=== PATIENT | male | born 1980 | race Caucasian/White ===

== ENCOUNTER 2020-01-27 22:35 | Emergency (ER) | payer BC ==
[~2020-01-27] VITALS: Ht 180.3 cm; Wt 136.3 kg
[2020-01-27] MEDS ORDERED: HYDROcodone/APAP 5/325MG 1 TAB TABLET PO ONE (23:30)
--- NOTE | 2020-01-27 23:34 | PHYS DOC ---
General Adult EDM: Chief Complaint: LOWEREXTREMITY INJURY HPI: HPI: Patient is a 39 year old male who presented to ER today for evaluation of right knee pain after he fell on his right knee today around 10 PM. Patient was walking the sidewalk, tripped and fell down on his right knee. Patient denies any head or neck injury. Patient was able to get up and walk but he also has knee pain that radiated to his right hip area. Review of Systems: Review of Systems: Constitutional: Denies fever or chills. [] Eyes: Denies change in visual acuity. [] HENT: Denies nasal congestion or sore throat. [] Respiratory: Denies cough or shortness of breath. [] Cardiovascular: Denies chest pain or edema. [] GI: Denies abdominal pain, nausea, vomiting, bloody stools or diarrhea. [] : Denies dysuria. [] Musculoskeletal: Positive for right knee and right hip pain. Integument: Denies rash. [] Neurologic: Denies headache, focal weakness or sensory changes. [] Endocrine: Denies polyuria or polydipsia. [] Lymphatic: Denies swollen glands. [] Psychiatric: Denies depression or anxiety. [] Heart Score: Risk Factors: Risk Factors: DM, Current or recent (<one month) smoker, HTN, HLP, family history of CAD, obesity. Risk Scores: Score 0 - 3: 2.5% MACE over next 6 weeks - Discharge Home Score 4 - 6: 20.3% MACE over next 6 weeks - Admit for Clinical Observation Score 7 - 10: 72.7% MACE over next 6 weeks - Early Invasive Strategies Current Medications: Current Medications Medications (Trade) Dose Ordered Sig/Piotr Start Time Stop Time Status Last Admin Dose Admin Acetaminophen/ Hydrocodone Bitart (Lortab 5/325) 2 tab 1X ONCE 01/27/20 23:30 01/27/20 23:31 DC Allergies: Allergies: Allergies Coded Allergies Type Severity Reaction Last Updated Verified No Known Drug Allergies 01/27/20 No Physical Exam: PE: Constitutional: Well developed, well nourished, no acute distress, non-toxic appearance. [] HENT: Normocephalic, atraumatic, bilateral external ears normal, oropharynx moist, no oral exudates, nose normal. [] Eyes: PERRLA, EOMI, conjunctiva normal, no discharge. [] Neck: Normal range of motion, no tenderness, supple, no stridor. [] Cardiovascular:Heart rate regular rhythm, no murmur [] Lungs & Thorax: Bilateral breath sounds clear to auscultation [] Abdomen: Bowel sounds normal, soft, no tenderness, no masses, no pulsatile masses. [] Skin: Warm, dry, no erythema, no rash. [] Back: No tenderness, no CVA tenderness. [] Extremities: Right knee is swollen and tender at the patella area, no open wound, right side pelvic is tender to palpation. Patient can flex and extend his right knee without any problem. Neurologic: Alert and oriented X 3, normal motor function, normal sensory function, no focal deficits noted. [] Psychologic: Affect normal, judgement normal, mood normal. [] Current Patient Data: Vital Signs: Vital Signs Date Time Temp Pulse Resp B/P (MAP) Pulse Ox O2 Delivery O2 Flow Rate FiO2 01/27/20 23:14 98.8 59 24 145/85 (105) 95 Room Air 98.8 EKG: EKG: [] Radiology/Procedures: Radiology/Procedures: [facility] [address] [place] [address] IMAGING REPORT Signed PATIENT: KASEY MUNIZ ACCOUNT: [id number] : 1980 LOCATION: ER AGE: 39 SEX: M EXAM STATUS: REG ER ORD. PHYSICIAN: JUAN PABLO LEON DO REASON: fell, right knee injured PROCEDURE: KNEE RIGHT 3V 2 views right knee: HISTORY: Pain after fall Limited 2 view AP lateral views The visualized osseous structures appear grossly intact. There is soft tissue density anterior to the patella. IMPRESSION: Probable large hematoma. No fracture seen. End impression Pelvis right hip: AP view the pelvis was obtained as well as AP and frog leg views of the right hip The visualized osseous structures appear grossly intact. The femoral acetabular relationship is normal. IMPRESSION: No acute findings. Electronically signed by: Sammy Moss III, MD (01/28/2020 12:21 AM) [facility] DICTATED and SIGNED BY: SAMMY MOSS III, MD DATE: 01/28/20 0021 Course & Med Decision Making: Course & Med Decision Making Pertinent Labs and Imaging studies reviewed. (See chart for details) Patient is a 39-year-old male who sustained right knee hematoma and contusion, x-ray did not show any fracture. Patient will be discharged home with crutches. Bre Disclaimer: Bre Disclaimer: This electronic medical record was generated, in whole or in part, using a voice recognition dictation system. Departure Departure Impression: Primary Impression: Contusion of knee, right Disposition: 01 DC HOME SELF CARE/HOMELESS Condition: STABLE Referrals: JOHN ELIZALDE DO (PCP) please follow up with your doctor for outpatient evaluation with MRI next week if you are not getting better. Patient Instructions: Contusion Scripts Hydrocodone/Apap 10-325 (NORCO 10-325 TABLET) 1 Each Tablet 1 TAB PO PRN Q6HRS PRN for PAIN, #20 TAB 0 Refills Prov: JUAN PABLO LEON DO 01/28/20 JUAN PABLO LEON DO Jan 27, 2020 23:33
--- NOTE | 2020-01-28 00:24 | RAD ---
2 views right knee: HISTORY: Pain after fall Limited 2 view AP lateral views The visualized osseous structures appear grossly intact. There is soft tissue density anterior to the patella. IMPRESSION: Probable large hematoma. No fracture seen. End impression Pelvis right hip: AP view the pelvis was obtained as well as AP and frog leg views of the right hip The visualized osseous structures appear grossly intact. The femoral acetabular relationship is normal. IMPRESSION: No acute findings. Electronically signed by: Maynor Islas III, MD (01/28/2020 12:21 AM) [facility]
--- NOTE | 2020-01-28 00:24 | RAD ---
2 views right knee: HISTORY: Pain after fall Limited 2 view AP lateral views The visualized osseous structures appear grossly intact. There is soft tissue density anterior to the patella. IMPRESSION: Probable large hematoma. No fracture seen. End impression Pelvis right hip: AP view the pelvis was obtained as well as AP and frog leg views of the right hip The visualized osseous structures appear grossly intact. The femoral acetabular relationship is normal. IMPRESSION: No acute findings. Electronically signed by: Maynor Islas III, MD (01/28/2020 12:21 AM) [facility]
[2020-01-28] MEDS ORDERED: MORPHINE SULFATE 10 MG/ML VIAL. IM ONE (00:30)
[2020-01-28] MEDS ORDERED: HYDR-3135 PO (01:08)
[2020-01-28 01:20] VITALS: BP 138/78
== END 2020-01-28 01:26 | disposition home or self-care (01) ==
LOC: ER 22:35
DX: S80.01XA Contusion of right knee, initial encounter (principal); M25.551 Pain in right hip; W01.0XXA Fall on same level from slipping, tripping and stumbling without subsequent striking against object, initial encounter; Y93.89 Activity, other specified; Y92.89 Other specified places as the place of occurrence of the external cause; Y99.8 Other external cause status
CPT/HCPCS: 73502; 73562; 96372; 99285; J2270

== ENCOUNTER → 2020-02-11 | Outpatient (CLI) | payer BC ==
[2020-01-28 01:20] VITALS: BP 138/78
[~2020-02-11] MED LIST: HYDR-3135 PO
--- NOTE | 2020-02-11 10:34 | KCIC ---
MRI right knee without contrast HISTORY: Fall injury. Right knee pain. Unable to bear weight or extend the knee. M23.91 COMPARISON: Right knee x-rays January 27, 2020 Findings: No bone edema, fracture or osteonecrosis. There is mild reactivated hematopoietic bone marrow at the distal femoral metadiaphysis, in a male patient of this age could be observed with tobacco smoking, chronic anemia or chronic lung disease. Minimal volume of joint fluid no sizable joint effusion. No Bernstein's cyst. Along the anterior knee overlying the quadriceps tendon, patella and patellar tendon as well as overlying the vastus medialis myotendinous junction at the knee and lower thigh there is expansile soft tissue hematoma with mixed T1 and T2-weighted signal hyperintensity, which measures 10 cm transverse diameter by 4 cm AP thickness by 13 cm craniocaudal length. There is soft tissue edema surrounding the hematoma. The patellofemoral compartment demonstrates mild thinning of the patella apex cartilage and trochlea cartilage without a focal or full-thickness cartilage defect. No lateralization of the patella. The patellofemoral ligaments remain intact. The extensor tendon mechanism remains intact. Hoffa's fat pad is unremarkable. Posterior cruciate ligament intact. Anterior cruciate ligament at its tibial attachment demonstrates amorphous T2-weighted signal and expansion which is likely mucoid degeneration. There is no evidence of a fluid-filled partial-thickness tear or a full-thickness tear of the anterior cruciate ligament. Additionally there are no secondary signs of a cruciate ligament injury such as no pivot shift contusion pattern or joint effusion. Medial tibiofemoral compartment demonstrates no focal or full-thickness cartilage defect. Medial meniscus intact. Medial collateral ligament intact. Lateral tibiofemoral compartment demonstrates no focal or full-thickness cartilage defect. Lateral meniscus intact. Lateral collateral complex is intact including the popliteus tendon, biceps femoris tendon, fibular collateral ligament and iliotibial band. IMPRESSION: 1. Large soft tissue hematoma of the anterior knee as described above. 2. Mild mucoid degeneration of the anterior cruciate ligament. No evidence of a ligament tear. 3. The cruciate ligaments and collateral ligaments are intact. The menisci are intact. 4. Expansion of the hematopoietic bone marrow of the distal femur as described above. Electronically signed by: Jaylen Mckay MD (02/11/2020 10:31 AM) [facility]
== END ==
LOC: KCIC MRI 09:14
PROVIDERS: ATTEND Family Medicine
DX: M25.561 Pain in right knee (principal)
CPT/HCPCS: 73721

== ENCOUNTER 2020-06-18 10:00 | Emergency (ER) | payer BC ==
[~2020-06-18] VITALS: Ht 180.3 cm; Wt 159.0 kg
[2020-06-18] MEDS ORDERED: IV NORMAL SALINE 1000ML BAG 1,000 ML IV ONE (10:30)
[2020-06-18] MEDS ORDERED: ONDANSETRON PF 4 MG/2 ML VIAL. IVP ONE (10:30)
[2020-06-18] MEDS ORDERED: MORPHINE SULFATE 4 MG/ML VIAL. IV ONE (10:30)
[2020-06-18 10:47] LABS: BILIRUBIN,URINE NEGATIVE (NEG); CLARITY,URINE CLEAR; COLOR,URINE YELLOW; NITRITE,URINE NEGATIVE (NEG); PROTEIN,URINE NEGATIVE (NEG-TRACE)
[2020-06-18 10:55] LABS: BACTERIA,URINE 0 /HPF (0-FEW); RBC,URINE 0 /HPF (0-2); WBC,URINE 0 /HPF (0-4)
[2020-06-18 11:04] LABS: BASO # 0.1 x10^3/uL (0.0-0.2); BASO % 1 % (0-3); EOS # 0.1 x10^3/uL (0.0-0.7); EOS % 2 % (0-3); HEMOGLOBIN 13.4 g/dL (13.0-17.5); LYMPH # 1.4 x10^3/uL (1.0-4.8); LYMPH % 20 % (24-48); MEAN CORPUSCULAR HEMOGLOBIN 29 pg (25-35); MEAN CORPUSCULAR HGB CONC 34 g/dL (31-37); MEAN CORPUSCULAR VOLUME 84 fL (79-100); MONO # 0.7 x10^3/uL (0.0-1.1); MONO % 10 % (0-9); NEUT # 4.5 x10^3/uL (1.8-7.7); NEUT % 67 % (31-73); PLATELET COUNT 217 x10^3/uL (140-400); RED BLOOD COUNT 4.64 x10^6/uL (4.30-5.70); RED CELL DISTRIBUTION WIDTH 13.4 % (11.5-14.5); WHITE BLOOD COUNT 6.7 x10^3/uL (4.0-11.0)
[2020-06-18 11:15] LABS: CALCIUM 8.5 mg/dL (8.5-10.1); CREATININE 0.9 mg/dL (0.7-1.3); POTASSIUM 4.6 mmol/L (3.5-5.1)
[2020-06-18 11:20] LABS: ALBUMIN 3.5 g/dL (3.4-5.0); ALBUMIN/GLOBULIN RATIO 1.2 (1.0-1.7); TOTAL BILIRUBIN 0.5 mg/dL (0.2-1.0); TOTAL PROTEIN 6.4 g/dL (6.4-8.2)
[2020-06-18] MEDS ORDERED: KETOROLAC 30 MG/ML VIAL. IVP ONE (11:45)
--- NOTE | 2020-06-18 11:47 | RAD ---
Exam Date: 06/18/2020 10:[address] ABDOMEN+PELVIS WO Indication: Reason: abd pain right flank pain, hx of kidney stones / Spl. Instructions: / History: TECHNIQUE: CT examination of the abdomen and pelvis was performed without oral or intravenous contra st. One or more of the following dose reduction techniques were utilized: *Automated exposure control (AEC) *Adjustment of mA and/or kV according to patient size *Use of iterative reconstruction technique *CT scan done according to ALARA, or ALARA/IMAGE GENTLY FINDINGS: The visualized lung bases are clear. Postoperative changes of suspected gastric bypass are seen in the upper abdomen. The gallbladder is d istended up to 10 x 5 cm without appreciable gallbladder wall thickening, pericholecystic fluid, or p ericholecystic fat stranding. The liver, spleen, pancreas, and adrenal glands are otherwise normal. The kidneys are normal bilaterally. No hydronephrosis or hydroureter is seen. No urinary tract calc pop are seen. Urinary bladder is normal in appearance. There is no bowel obstruction or inflammation. The appendix is normal. No significant atherosclerotic calcifications are seen. No lymphadenopathy or ascites is seen. Degenerative changes are seen in the spine. IMPRESSION: Normal appearance of the kidneys and bladder. No hydronephrosis or hydroureter. No urinary tract ca lculi. Distended gallbladder without definite appreciable gallbladder inflammation, though sensitivity for g allbladder pathology is limited on CT imaging. If there is clinical concern for gallbladder pathology such as acute cholecystitis, further evaluation with right upper quadrant ultrasound or nuclear medi cine hepatobiliary scan can be performed. Electronically signed by: Ricky Guevara MD (06/18/2020 11:45 AM) [id number]
[2020-06-18 12:20] VITALS: BP 138/80
--- NOTE | 2020-06-18 12:27 | PHYS DOC ---
Past Medical History Past Medical History: Depression, Hypertension, Kidney Stone, Migraines, Other Additional Past Medical Histor: SLEEP APNEA Past Surgical History: Gastric Bypass Smoking Status: Never Smoker Alcohol Use: None General Adult EDM: Chief Complaint: FLANK PAIN HPI: HPI: Patient is a 39 year old male with history of hypertension, depression, kidney stones, migraine headaches, who presents today complaining of 4 out of 10 right upper and lower abdomen pain, symptoms began 30 minutes prior to coming to the ED. Patient states initially the pain was on his right groin and went to the right side of the abdomen. Patient states this feels similar to the last time he had a kidney stone. Denies any dysuria, urgency, frequency, fever, nausea vomiting. Describes the pain as sharp and intermittent. Denies anything specifically exacerbating or relieving the pain. Review of Systems: Review of Systems: Constitutional: Denies fever or chills. [] Eyes: Denies change in visual acuity. [] HENT: Denies nasal congestion or sore throat. [] Respiratory: Denies cough or shortness of breath. [] Cardiovascular: Denies chest pain or edema. [] GI: Reports right upper abdomen and right lower abdomen pain, denies nausea, vomiting, bloody stools or diarrhea. [] : Denies dysuria. [] Musculoskeletal: Denies back pain or joint pain. [] Integument: Denies rash. [] Neurologic: Denies headache, focal weakness or sensory changes. [] Psychiatric: Denies depression or anxiety. [] Heart Score: C/O Chest Pain: N/A Risk Factors: Risk Factors: DM, Current or recent (<one month) smoker, HTN, HLP, family history of CAD, obesity. Risk Scores: Score 0 - 3: 2.5% MACE over next 6 weeks - Discharge Home Score 4 - 6: 20.3% MACE over next 6 weeks - Admit for Clinical Observation Score 7 - 10: 72.7% MACE over next 6 weeks - Early Invasive Strategies Current Medications: Current Medications Medications (Trade) Dose Ordered Sig/Piotr Start Time Stop Time Status Last Admin Dose Admin Ketorolac Tromethamine (Toradol 30mg Vial) 30 mg 1X ONCE 06/18/20 11:45 06/18/20 11:46 DC 06/18/20 11:46 30 MG Morphine Sulfate (Morphine Sulfate) 4 mg 1X ONCE 06/18/20 10:30 06/18/20 10:31 DC Ondansetron HCl (Zofran) 4 mg 1X ONCE 06/18/20 10:30 06/18/20 10:31 DC Sodium Chloride 1,000 ml @ 1,000 mls/hr 1X ONCE 06/18/20 10:30 06/18/20 11:29 DC 06/18/20 11:07 1,000 MLS/HR Allergies: Allergies: Allergies Coded Allergies Type Severity Reaction Last Updated Verified citalopram Allergy Intermediate UNKNOWN REACTION 06/18/20 Yes Iodinated Contrast Media Adverse Reaction Intermediate NAUSEA AND VOMITING 06/18/20 Yes Physical Exam: PE: Constitutional: Obese patient, no acute distress, non-toxic appearance. [] HENT: Normocephalic, atraumatic, bilateral external ears normal, oropharynx moist, no oral exudates, nose normal. [] Eyes: PERRLA, EOMI, conjunctiva normal, no discharge. [] Neck: Normal range of motion, no tenderness, supple, no stridor. [] Cardiovascular:Heart rate regular rhythm, no murmur [] Lungs & Thorax: Bilateral breath sounds clear to auscultation [] Abdomen: Bowel sounds normal, soft, no tenderness, no masses, no pulsatile masses. [] Skin: Warm, dry, no erythema, no rash. [] Back: No tenderness, no CVA tenderness. [] Extremities: No tenderness, no cyanosis, no clubbing, ROM intact, no edema. [] Neurologic: Alert and oriented X 3, normal motor function, normal sensory function, no focal deficits noted. [] Psychologic: Affect normal, judgement normal, mood normal. [] Current Patient Data: Labs: Laboratory Tests Test 06/18/20 10:05 06/18/20 10:48 Urine Collection Type Unknown Urine Color Yellow Urine Clarity Clear Urine pH 7.0 (<5.0-8.0) Urine Specific [place] 1.025 (1.000-1.030) Urine Protein Negative mg/dL (NEG-TRACE) Urine Glucose (UA) Negative mg/dL (NEG) Urine Ketones (Stick) Trace mg/dL (NEG) Urine Blood Negative (NEG) Urine Nitrite Negative (NEG) Urine Bilirubin Negative (NEG) Urine Urobilinogen Dipstick 1.0 mg/dL (0.2 mg/dL) Urine Leukocyte Esterase Negative (NEG) Urine RBC 0 /HPF (0-2) Urine WBC 0 /HPF (0-4) Urine Squamous Epithelial Cells Few /LPF Urine Bacteria 0 /HPF (0-FEW) Urine Mucus Slight /LPF White Blood Count 6.7 x10^3/uL (4.0-11.0) Red Blood Count 4.64 x10^6/uL (4.30-5.70) Hemoglobin 13.4 g/dL (13.0-17.5) Hematocrit 39.0 % (39.0-53.0) Mean Corpuscular Volume 84 fL (79-100) Mean Corpuscular Hemoglobin 29 pg (25-35) Mean Corpuscular Hemoglobin Concent 34 g/dL (31-37) Red Cell Distribution Width 13.4 % (11.5-14.5) Platelet Count 217 x10^3/uL (140-400) Neutrophils (%) (Auto) 67 % (31-73) Lymphocytes (%) (Auto) 20 % (24-48) L Monocytes (%) (Auto) 10 % (0-9) H Eosinophils (%) (Auto) 2 % (0-3) Basophils (%) (Auto) 1 % (0-3) Neutrophils # (Auto) 4.5 x10^3/uL (1.8-7.7) Lymphocytes # (Auto) 1.4 x10^3/uL (1.0-4.8) Monocytes # (Auto) 0.7 x10^3/uL (0.0-1.1) Eosinophils # (Auto) 0.1 x10^3/uL (0.0-0.7) Basophils # (Auto) 0.1 x10^3/uL (0.0-0.2) Sodium Level 142 mmol/L (136-145) Potassium Level 4.6 mmol/L (3.5-5.1) Chloride Level 106 mmol/L (98-107) Carbon Dioxide Level 31 mmol/L (21-32) Anion Gap 5 (6-14) L Blood Urea Nitrogen 21 mg/dL (8-26) Creatinine 0.9 mg/dL (0.7-1.3) Estimated GFR (Cockcroft-Gault) 93.0 BUN/Creatinine Ratio 23 (6-20) H Glucose Level 92 mg/dL (70-99) Calcium Level 8.5 mg/dL (8.5-10.1) Total Bilirubin 0.5 mg/dL (0.2-1.0) Aspartate Amino Transferase (AST) 15 U/L (15-37) Alanine Aminotransferase (ALT) 21 U/L (16-63) Alkaline Phosphatase 76 U/L (46-116) Total Protein 6.4 g/dL (6.4-8.2) Albumin 3.5 g/dL (3.4-5.0) Albumin/Globulin Ratio 1.2 (1.0-1.7) Lipase 145 U/L (73-393) Laboratory Tests 06/18/20 10:48 Laboratory Tests 06/18/20 10:48 Vital Signs: Vital Signs Date Time Temp Pulse Resp B/P (MAP) Pulse Ox O2 Delivery O2 Flow Rate FiO2 06/18/20 10:20 98.1 68 16 131/65 (87) 16 Room Air 98.1 EKG: EKG: [] Radiology/Procedures: Radiology/Procedures: []ROCEDURE: CT ABDOMEN PELVIS WO CONTRAST Exam Date: 06/18/2020 10:[address] ABDOMEN+PELVIS WO Indication: Reason: abd pain right flank pain, hx of kidney stones / Spl. Instructions: / History: TECHNIQUE: CT examination of the abdomen and pelvis was performed without oral or intravenous contrast. One or more of the following dose reduction techniques were utilized: *Automated exposure control (AEC) *Adjustment of mA and/or kV according to patient size *Use of iterative reconstruction technique *CT scan done according to ALARA, or ALARA/IMAGE GENTLY FINDINGS: The visualized lung bases are clear. Postoperative changes of suspected gastric bypass are seen in the upper abdomen. The gallbladder is distended up to 10 x 5 cm without appreciable gallbladder wall thickening, pericholecystic fluid, or pericholecystic fat stranding. The liver, spleen, pancreas, and adrenal glands are otherwise normal. The kidneys are normal bilaterally. No hydronephrosis or hydroureter is seen. No urinary tract calculi are seen. Urinary bladder is normal in appearance. There is no bowel obstruction or inflammation. The appendix is normal. No significant atherosclerotic calcifications are seen. No lymphadenopathy or ascites is seen. Degenerative changes are seen in the spine. IMPRESSION: Normal appearance of the kidneys and bladder. No hydronephrosis or hydroureter. No urinary tract calculi. Distended gallbladder without definite appreciable gallbladder inflammation, th ough sensitivity for gallbladder pathology is limited on CT imaging. If there is clinical concern for gallbladder pathology such as acute cholecystitis, further evaluation with right upper quadrant ultrasound or nuclear medicine hepatobiliary scan can be performed. Electronically signed by: Miguel Guevara MD (06/18/2020 11:45 AM) [id number] DICTATED and SIGNED BY: MIGUEL GUEVARA MD DATE: 06/18/20 [id number] Course & Med Decision Making: Course & Med Decision Making Pertinent Labs and Imaging studies reviewed. (See chart for details) This is a 39-year-old male patient presented to the ED today complaining of pain to the right upper quadrant of right lower quadrant, symptoms began 30 minutes prior to coming to the ED, patient reports the symptoms are similar to the last time he had a kidney stone. UA with no infection, no blood. CBC, CMP with no acute findings. CT of the abdomen was noted for distended gallbladder with no cholecystitis. Patient's abdomen on the right upper quadrant is not tender. Negative Lewis si gn. Patient was discharged home. Follow-up with general surgery as well as PCP. Bre Disclaimer: Dragking Disclaimer: This electronic medical record was generated, in whole or in part, using a voice recognition dictation system. Departure Departure Impression: Primary Impression: Abdominal pain Qualified Codes: R10.31 - Right lower quadrant pain Additional Impression: Cholelithiasis Qualified Codes: K80.20 - Calculus of gallbladder without cholecystitis without obstruction Disposition: [facility] HOME SELF CARE/HOMELESS Condition: STABLE Referrals: JOHN ELIZALDE DO (PCP) Follow-up in 1 week DORIAN PARIKH MD Follow-up in 1 to 2 weeks Patient Instructions: Abdominal Pain, Cholelithiasis Additional Instructions: You were evaluated in the emergency room for abdominal pain, you were noted to have cholelithiasis/gallbladder disease. Please follow-up with your primary care doctor or the provided general surgeon in the next 1 to 2 weeks. Please avoid eating greasy foods, fatty foods, spicy foods or any other foods that can cause worsening of gallbladder disease SHERLEY LE APRN Jun 18, 2020 12:27
== END 2020-06-18 12:55 | disposition home or self-care (01) ==
LOC: ER 10:00
DX: K80.20 Calculus of gallbladder without cholecystitis without obstruction (principal); R10.31 Right lower quadrant pain; R10.11 Right upper quadrant pain; F32.9 Major depressive disorder, single episode, unspecified; I10 Essential (primary) hypertension; G43.909 Migraine, unspecified, not intractable, without status migrainosus; Z87.442 Personal history of urinary calculi; Z98.890 Other specified postprocedural states; Z88.8 Allergy status to other drugs, medicaments and biological substances; Z91.041 Radiographic dye allergy status
CPT/HCPCS: 36415; 74176; 80053; 81001; 83690; 85025; 96361; 96374; 99284; J1885; J7030